=== PATIENT | male | born 1955 | race Caucasian/White ===

== ENCOUNTER 2024-03-02 07:40 | Day surgery (SDC) | payer OTHER ==
[2024-02-25 08:32] VITALS: BP 120/68
[~2024-03-02] VITALS: Ht 177.8 cm; Wt 81.8 kg
[~2024-03-02 07:40] MED LIST: AIRDUO DIGIHAL1 EACH IH; ASPERCREME ARTH50 GM; BAYER CHEWABLE81 MG PO; BUTALB-ACETAMI1 EACH PO; CLARITIN10 M2 PO; CLOBETASOL PROP15 G3; CLOBETASOL PROP15 GM TOP; COQ-10100 MG PO; CRESTOR40 MG NG; FEVERALL325 MG PR; GABAPENTIN300 MG PO; GAS RELIEF80 MG PO; IBLOOD GLUCOSE TEST STRIP 1 EA TEST VI PRN; IMITREX100 MG PO; LACTATED RINGER'S 1,000 ML IV SCH; LIDOCAINE HCL 1% 5 ML SDV INJ ONE; NITROSTAT0.4 MG SL; PROTONIX40 M1 PO; REFRESH CELLUV1 EACH OPTH; REFRESH RELIEVA OP; SPIRIVA RESPIMAT4 G1 INH; TYLENOL EXTRA500 MG PO; VITAMIN B-2100 MG PO; propofoL 200 MG/20 ML VIAL ONE
[2024-03-02] MEDS ORDERED: dexmedeTOMIDine HCl 200 MCG/2 ML VIAL ONE (08:20)
[2024-03-02] MEDS ORDERED: LACTATED RINGER'S 1,000 ML IV ONE (08:50)
--- NOTE | 2024-03-02 09:06 | NUR ---
03/02/24 0905 Ashly Blanca -PATIENT ARRIVED TO PACU ON 6L MASK RR EVEN NONAROUSABLE LAYING LEFT LATERAL. ABDOMEN SOFT. IVF INFUSING. BP ELEVATED 180'S RECEIVED MEDICATION DURING PROCEDURE TO INCREASE. SINUS TERE HR UPPER 50'S.
[2024-03-02] MEDS ORDERED: ePHEDrine sulfate 50 MG/ML AMP ONE (09:16)
[2024-03-02 10:27] VITALS: BP 114/86
--- NOTE | 2024-03-02 10:53 | OR ---
[facility] [address] [place], [place] [address] Signed DATE OF OPERATION: 03/02/2024 SURGEON: Tiffanie Weir MD PREOPERATIVE DIAGNOSES: 1. Chronic diarrhea and fecal urgency. 2. Guaiac positive stool. 3. Chronic generalized abdominal pain. 4. Chronic gastroesophageal reflux disease. POSTOPERATIVE DIAGNOSES: 1. Minimal distal gastritis. 2. Small hiatal hernia. 3. GE junction at 36 cm. 4. Moderate left-sided diverticulosis. 5. Minimal to moderate internal hemorrhoids. PROCEDURES: 1. EGD with CLOtest and biopsies of the duodenum, pyloric bulb and antrum. 2. Colonoscopy without biopsy. ESTIMATED BLOOD LOSS: None. INDICATIONS: Zachary is a 68-year-old gentleman, asked to see me for both upper and lower endoscopy. He lives over [place] hour [place] a half east in [place], [place]. He travels all the way to [place], [place] to the [facility]. He describes seeing Dr. Rodriguez in [place], [place] for cardiac evaluation. It sounds like he underwent a stress test and an echocardiogram. He mentions a 4 cm thoracic aortic arch aneurysm as well. It is not large enough for surgery. He has no murmur. He has COPD but does fine if he walks on flat ground. He said he quit drinking a few years ago as well as smoking. Nevertheless, he clearly needs monitored anesthesia care for both upper and lower endoscopy. He also is describing acid reflux and increased the Protonix up to 40 mg p.o. b.i.d. He is quite convinced that he has had heart attacks in the past. He declined endoscopies because he went through what sounds like a colonoscopy or maybe a sigmoidoscopy without sedation at the age of 42. He was having various abdominal complaints and diarrhea. He said he was wide-awake and he was in horrible pain. They also told me he fell [place] the side of mountain years ago and injured his abdomen. He thinks that made the diarrhea and his fecal urgency worse. He gave a stool sample Electronically Signed By: TIFFANIE WEIR MD 03/02/24 1053 PATIENT NAME: ZACHARY FERNANDEZ OPERATIVE REPORT DATE OF : 51 REPORT #: [id number] PHYSICIAN: TIFFANIE WEIR MD PCP: NO PRIMARY CARE PHYSICIAN REPORT IS CONFIDENTIAL AND NOT TO BE RELEASED WITHOUT AUTHORIZATION [facility] [address] [place], [place] [address] Signed recently that came back guaiac positive. He said there is no family history of colon cancer or polyps. In the office, I gave him pamphlets on both upper and lower endoscopy. We had reviewed those in detail. He understands there is risk including, but not limited to gas bloating, crampy abdominal pain, bleeding, perforation requiring surgery, and missed diagnosis. We also reviewed the written instructions for the bowel prep line by line. He said he does not read very well. He said his neighbor will help him as needed or he can call our office. He understands that an adult person has to take him home afterwards. He had expressed understanding and wished to proceed. PROCEDURE IN DETAIL: Zachary was taken into our endoscopy suite and placed in the supine semi-recumbent position. The posterior oropharynx was anesthetized with lidocaine spray. A bite block was utilized for the case. The adult gastroscope was introduced and advanced under direct visualization of the camera into the duodenum. The duodenum and pyloric channel were really unremarkable. We went ahead and took a biopsy of the duodenum and pyloric channel because of his chronic abdominal symptoms. He had very minimal irritation in the distal antrum. We went ahead and took a biopsy of the antrum for CLOtest as well as pathologic review. There were no ulcerations in the pyloric channel or the antrum. Upon retroflexion of the scope, I could see just a tiny hiatal hernia. The scope was withdrawn up through the area of the GE junction, which was compliant without stricture. There was no gastric or esophageal varices. Very minimal disruption to the Z-line. There was no Redmond's mucosa. No distal esophagitis. The middle and upper esophagus were unremarkable. The vocal cords and his arytenoids were also unremarkable. After this, the gas was suctioned out and the gastroscope removed. Zachary tolerated the upper endoscopy quite well. Zachary was rotated into the left lateral decubitus position. He was maintained on monitored anesthesia care with propofol infusion per our nurse instructor dramatic arts. A digital rectal exam was performed and this was unremarkable. He had no external hemorrhoids. He had good sphincter tone. There were no masses. The adult colonoscope was introduced and advanced under direct visualization of the camera up into the cecum itself. It took a little extra abdominal compression in placing Zachary into the supine position in order to get the camera directly into the cecum itself. Overall, his prep was good. He had a couple areas of liquid stool that we suctioned out. We could easily see his appendiceal orifice and ileocecal valve. The scope was then slowly withdrawn. We took several pictures throughout for photodocumentation. He has moderate left-sided diverticulosis. They are moderate in size, moderate in number and scattered about. Once in the rectum, the scope was retroflexed and he does have minimal to moderate internal hemorrhoid columns. There were no polyps. After this, the gas was suctioned out and the colonoscope removed. Zachary tolerated the procedure quite well. RECOMMENDATIONS: Electronically Signed By: TIFFANIE WEIR MD 03/02/24 1053 PATIENT NAME: ZACHARY FERNANDEZ OPERATIVE REPORT DATE OF : 51 REPORT #: [id number] PHYSICIAN: TIFFANIE WEIR MD PCP: NO PRIMARY CARE PHYSICIAN REPORT IS CONFIDENTIAL AND NOT TO BE RELEASED WITHOUT AUTHORIZATION [facility] [address] [place], [place] [address] Signed I will see Zachary back in my office in 7 to 14 days to review his results. It is looking like Zachary may have a functional bowel disorder. MD EDUARDA Henriquez/NARINDERL /[id number] cc: Tiffanie Weir MD [facility] [place] [place] Copies: TIFFANIE WEIR MD ~ Electronically Signed By: TIFFANIE WEIR MD 03/02/24 1053 PATIENT NAME: ZACHARY FERNANDEZ OPERATIVE REPORT DATE OF : 51 REPORT #: [id number] PHYSICIAN: TIFFANIE WEIR MD PCP: NO PRIMARY CARE PHYSICIAN REPORT IS CONFIDENTIAL AND NOT TO BE RELEASED WITHOUT AUTHORIZATION
--- NOTE | 2024-03-03 23:45 | EKG ---
[facility] [address] [facility] [place] [address] Signed Normal sinus rhythm Normal ECG No previous ECGs available Confirmed by Eldon Riddle MD () on 03/03/2024 11:45:01 PM Electronically Signed By: ELDON RIDDLE MD 03/03/24 2345 PATIENT NAME: ZACHARY FERNANDEZ Electrocardiogram DATE OF : 51 PHYSICIAN: ELDON RIDDLE MD REPORT #: [id number] REPORT IS CONFIDENTIAL AND NOT TO BE RELEASED WITHOUT AUTHORIZATION
--- NOTE | 2024-03-04 12:15 | PATH ---
[facility] [address] [place], [place] [address] Signed SPECIMEN(S): A DUODENAL BIOPSY SPECIMEN(S): B PYLORIC BULB BIOPSY SPECIMEN(S): C ANTRUM BIOPSY SPECIMEN SOURCE: A. DUODENAL BIOPSY B. PYLORIC BULB BIOPSY C. ANTRUM BIOPSY CLINICAL HISTORY: Diarrhea, abdominal pain, guaiac positive; postop Dx: Mild gastritis; small hiatal hernia; diverticulosis; internal hemorrhoids FINAL PATHOLOGIC DIAGNOSIS: A. Duodenum, biopsy: - Benign duodenal mucosa, negative for active inflammation or villous blunting. B. Pyloric bulb, biopsy: - Duodenal type mucosa with chronic duodenitis and Solo's gland hyperplasia, negative for active inflammation or significant villous blunting. C. Antrum, biopsy: - Benign antral mucosa with vascular congestion, negative for active inflammation. - No H. pylori bacteria are detected by HE stain. AMB MICROSCOPIC EXAMINATION: Histologic sections of all submitted blocks are examined by light microscopy. These findings, together with the gross examination, support the pathologic diagnosis. GROSS DESCRIPTION: A. The specimen, labeled and designated "Hilton, duodenum biopsy," is received in formalin and consists of one baker soft tissue fragment, 0.2 cm. Entirely submitted in (A1). B. The specimen, labeled and designated "Bryers, pyloric bulb biopsy," is received in formalin and consists of one baker soft tissue fragment, 0.2 cm. Entirely submitted in (B1). C. The specimen, labeled and designated "Bryers, antrum biopsy," is received in formalin and consists of one baker soft tissue fragment, 0.2 cm. Entirely submitted in (C1). PATIENT NAME: ZACHARY FERNANDEZ PATHOLOGY DATE OF : 51 REPORT #: [id number] PHYSICIAN: MIKE READ PCP: NO PRIMARY CARE PHYSICIAN REPORT IS CONFIDENTIAL AND NOT TO BE RELEASED WITHOUT AUTHORIZATION [facility] [address] [place], [place] [address] Signed JS (under the direct supervision of a pathologist) The Gross Description was prepared using a voice recognition system. The report was reviewed for accuracy; however, sound-alike word errors, addition and/or deletions may occur. If there is any question about this report, please contact Client Services. ADDITIONAL NOTES: Immunohistochemical and/or in situ hybridization studies if performed in this case included appropriate positive controls that reacted as expected. This test was developed and its performance characteristics determined by [facility]. It has not been cleared or approved by the U.S. Food and Drug Administration. The FDA has determined that such clearance or approval is not necessary. This test is used for clinical purposes. It should not be regarded as investigational or for research. [facility] is certified under the Clinical Laboratory Improvement Amendments of 1988 (CLIA) as qualified to perform high complexity clinical laboratory testing. PERFORMING LABORATORY: Technical component was performed by [facility], [address] [place] [id number] (CLIA# [id number]). Professional interpretation was performed by [facility] [address] [place] [id number] Diagnostician: Martha Bunch MD Pathologist Electronically Signed 03/04/2024 Copies: ~ PATIENT NAME: ZACHARY FERNANDEZ PATHOLOGY DATE OF : 51 REPORT #: [id number] PHYSICIAN: MIKE PATHOLOGY PCP: NO PRIMARY CARE PHYSICIAN REPORT IS CONFIDENTIAL AND NOT TO BE RELEASED WITHOUT AUTHORIZATION
== END 2024-03-02 10:35 | disposition home or self-care (01) ==
LOC: DS 07:40
PROVIDERS: ATTEND Colon & Rectal Surgery
PROC: 0DB78ZX Excision of Stomach, Pylorus, Via Natural or Artificial Opening Endoscopic, Diagnostic (ICD-10-PCS; 2024-03-02)
PROC: 0DB68ZX Excision of Stomach, Via Natural or Artificial Opening Endoscopic, Diagnostic (ICD-10-PCS; 2024-03-02)
PROC: 0DJD8ZZ Inspection of Lower Intestinal Tract, Via Natural or Artificial Opening Endoscopic (ICD-10-PCS; principal; 2024-03-02 09:15)
PROC: 0DB98ZX Excision of Duodenum, Via Natural or Artificial Opening Endoscopic, Diagnostic (ICD-10-PCS; 2024-03-02 09:15)
DX: K29.80 Duodenitis without bleeding (principal); K29.70 Gastritis, unspecified, without bleeding; K44.9 Diaphragmatic hernia without obstruction or gangrene; K57.30 Diverticulosis of large intestine without perforation or abscess without bleeding; K64.8 Other hemorrhoids; K21.9 Gastro-esophageal reflux disease without esophagitis; K52.9 Noninfective gastroenteritis and colitis, unspecified; J44.9 Chronic obstructive pulmonary disease, unspecified; E78.5 Hyperlipidemia, unspecified; Z87.891 Personal history of nicotine dependence; Z79.899 Other long term (current) drug therapy; Z79.82 Long term (current) use of aspirin
CPT/HCPCS: 00813; 36415; 87077; 93005; 93010; J2704; J7121